=== PATIENT | female | born 1980 | race Caucasian/White ===

== ENCOUNTER 2018-07-19 00:01 | Observation (INO) ==
[2018-07-19] MEDS ORDERED: Isovue-370 500 ML BOTTLE IVP ONE (00:13)
--- NOTE | 2018-07-19 00:13 | Emergency Department Note ---
Disposition Clinical Impression: Facial droop, Facial tingling Disposition: Admitted As Inpatient Condition: Good Time of Disposition: 02:08 Neuro HPI - General Chief Complaint: ED Neuro Symptoms/Deficit Stated Complaint: Neuro symptoms Time Seen by Provider: 07/19/18 00:07 Source: patient Mode of arrival: ambulatory Limitations: no limitations Nursing Notes Reviewed: Yes Vital Signs Reviewed: Yes - History of Present Illness HPI Narrative: Patient is a 37-year-old female, history of right-sided stroke with residual right sided facial droop of the upper and lower face. Presents today due to concern for left-sided facial droop. Patient states that around 10:30 PM on 07/18/2018, she states that she was "feeling off/foggy" and felt like she was slurring her speech, felt as though the left face was drooping in the lip and eyebrow. She also noted decreased sensation of the left upper and lower face. Denies any other numbness, tingling, weakness anywhere else. She denies any ot her symptoms of chest pain, shortness breath, nausea, vomiting, fevers, diarrhea, abdominal pain, any changes in vision. Denies any recent URI symptoms. - Related Data Home Medications: Previous Rx's Medication Instructions Recorded Cyclobenzaprine [Flexeril] 10 mg PO TID PRN #30 tablet 10/16/15 Ibuprofen [Motrin] 600 mg PO TID PRN #30 tab 10/16/15 Ondansetron ODT [Zofran ODT] 4 mg SL Q8HR PRN #10 tab.rapdis 10/16/15 Cyclobenzaprine [Flexeril] 10 mg PO TID #15 tablet 11/17/16 HYDROcodone/Acet 5/325 mg [[place] 1 tab PO Q4H PRN #12 tab 11/17/16 5-325 mg] RX: Naproxen [Naprosyn] 500 mg PO BID #20 tablet 10/12/17 Allergies/Adverse Reactions: Allergies Allergy/AdvReac Type Severity Reaction Status Date / Time No Known Allergies Allergy Verified 06/25/18 22:48 All systems ED: reviewed and negative except as stated. Constitutional: Denies: fever Cardiovascular: Denies: chest pain Respiratory: Denies: dyspnea Gastrointestinal: Denies: abdominal pain, nausea, vomiting, diarrhea Genitourinary: Denies: urgency, dysuria Neurological: Reports: weakness, numbness. Denies: headache, paresthesias, confusion Past Medical History - Past Medical History Attestation: Yes The following information was validated with the patient. Source: patient Medical history: Reports: cancer Psychiatric history: Reports: no psych history [employer] history: Reports: no [employer] history - Social History Smoking Status: Current every day smoker Smokeless Tobacco Status: No Alcohol use: Reports: none Drug use: Reports: none Physical Exam - General Limitations: no limitations General appearance: alert, in no apparent distress - Head Head exam: atraumatic, normocephalic, normal inspection - Eye Eye exam: Present: normal appearance, PERRL, EOMI - ENT ENT exam: normal oropharynx, mucous membranes moist, other (mild droop of left nasolabial fold) - Neck Neck exam: Present: normal inspection, full ROM, trachea midline - Chest Chest inspection: Present: normal inspection, symmetric chest wall rise - Respiratory Respiratory exam: Present: normal lung sounds bilaterally - Cardiovascular Cardiovascular exam: Present: normal rhythm, tachycardia, normal heart sounds - Abdominal Exam Abdominal exam: Present: soft, Non-Tender. Absent: tenderness, distention, guarding, rebound, rigidity - Extremities Exam Extremities exam: Present: normal inspection, full ROM. Absent: tenderness, pedal edema - Neurological Exam Neurological exam: Present: alert, oriented X3, other (chronic right eyebrow and right nasolabial droop from previous stroke) - Expanded Neurological Exam Patient oriented to: Present: person, place, time Speech: Present: fluid speech Cranial nerves: EOM function (II, III, IV, ): Normal, facial sensation (V): Normal, facial palsy (VII): Abnormal Right, Abnormal Left (chronic right eyebrow and right nasolabial droop from previous stroke; mild left sided nasolabial droop), spinal accessory function (XI): Normal, tongue deviation (XII): Normal Motor strength - LUE: 5/5 Motor strength - RUE: 5/5 Motor strength - LLE: 5/5 Motor strength - RLE: 5/5 Sensory exam upper extremity: light touch: Abnormal Left (mild decrease in sensaiton of LUE) Sensory exam lower extremity: light touch: Normal Coma Scale Eye Opening: Spontaneous Coma Scale Motor Response: Obeys Commands Coma Scale Verbal Response: Oriented Coma Scale Total: 15 - Psychiatric Psychiatric exam: Present: normal affect, normal mood - Skin Skin exam: Present: warm, dry, intact, normal color Course Course Narrative: Patient had mild left nasolabial drooping, she was able to raise her left eyebrow. She does have chronic droop of her right upper and lower face from what she says was a previous stroke. No drift of her extremities. She did have subjective decreased sensation to light touch on the left upper extremity. However, facial sensation was equal bilaterally. Due to mild left nasolabial drooping and decreased sensation of the left upper extremity, she received an NIH of 2. Sroke alert called on eval. basic blood work ordered, EKG, chest x- ray ordered as well. CT of the head noncontrast along with CT of the head and neck was performed. 00:55 Still do not have head CT back at this time. CT was called and "are working on it" per ED crank hand. Patient has went for CT but no images up for evaluation. 01:05 Still don't have head CT read back. Personally reviewed the images of the noncontrast head CT. No acute findings, a repeat. We will go ahead and talk with [facility] neurologist and wait for official read. 01:11 [facility] called back. Talked with call center, they are calling [facility] stroke specialist, awaiting call back. 01:[address] negative. Stroke neurologist on bedside cam. Patient has been seen and evaluated by [facility] neurologist Dr. Diop. On his evaluation, patient only had subjective tingling of the left side of the face. No other acute findings. He offered TPA due to the patient and the patient declined. He did note that this may not be a stroke and he would usually not recommend TPA for patients with a low NIH score. She understood the risk and benefits that was discussed with her mother [facility] neurologist and she has declined TPA at this time. He recommended that we admit the patient for further stroke workup. Patient is agreeable with this plan. Recommend MRI for next step. Rest of the workup was negative. 02:[address] Kuo Head CT 07/19/18 00:13 IMPRESSION: 1. No acute intracranial abnormality. 2. Negative for hemodynamic stenosis or occlusion identified involving intracranial arterial vasculature.. Critical results were called by Dr. Jay Gutierrez to Dr Morin on 07/19/2018 at 01:12. D/ / Jay Gutierrez / Jay Gutierrez Interpreting Provider: Jay Gutierrez Head CTA 07/19/18 00:13 IMPRESSION: 1. No acute intracranial abnormality. 2. Negative for hemodynamic stenosis or occlusion identified involving intracranial arterial vasculature.. Critical results were called by Dr. Jay Gutierrez to Dr Morin on 07/19/2018 at 01:12. D/ / Jay Gutierrez / Jay Gutierrez Interpreting Provider: Jay Gutierrez Chest X-Ray 07/19/18 00:15 IMPRESSION: Prominence of the central pulmonary vasculature is suspected. Correlation for pulmonary vascular congestion is recommended. D/ / Elayne Kennedy Cha, MD / Elayne Kennedy Cha, MD Interpreting Provider: Elayne Kennedy Cha, MD Vital Signs Temperature 0 F L 07/19/18 00:12 Pulse Rate 111 07/19/18 00:12 Respiratory Rate 19 07/19/18 00:12 Blood Pressure 160/98 07/19/18 00:12 O2 Sat by Pulse Oximetry 98 07/19/18 00:12 Temperature 0 F L 07/19/18 00:12 Pulse Rate 99 07/19/18 01:28 Respiratory Rate 16 07/19/18 01:28 Blood Pressure 142/96 07/19/18 01:28 O2 Sat by Pulse Oximetry 98 07/19/18 01:00 Oxygen Delivery Oxygen Delivery Room Air Neuro Symptoms/Deficit - MDM Narrative Medical decision making narrative: Patient had mild left nasolabial drooping, she was able to raise her left eyebrow. She does have chronic droop of her right upper and lower face from what she says was a previous stroke. No drift of her extremities. She did have subjective decreased sensation to light touch on the left upper extremity. However, facial sensation was equal bilaterally. Due to mild left nasolabial drooping and decreased sensation of the left upper extremity, she received an NIH of 2. Sroke alert called on eval. basic blood work ordered, EKG, chest x- ray ordered as well. CT of the head noncontrast along with CT of the head and neck was performed. 00:55 Still do not have head CT back at this time. CT was called and "are working on it" per ED crank hand. Patient has went for CT but no images up for evaluation. 01:05 Still don't have head CT read back. Personally reviewed the images of the noncontrast head CT. No acute findings, a repeat. We will go ahead and talk with [facility] neurologist and wait for official read. 01:11 [facility] called back. Talked with call center, they are calling [facility] stroke specialist, awaiting call back. 01:[address] negative. Stroke neurologist on bedside cam. Patient has been seen and evaluated by [facility] neurologist Dr. Diop. On his evaluation, patient only had subjective tingling of the left side of the face. No other acute findings. He offered TPA due to the patient and the patient declined. He did note that this may not be a stroke and he would usually not recommend TPA for patients with a low NIH score. She understood the risk and benefits that was discussed with her mother [facility] neurologist and she has declined TPA at this time. He recommended that we admit the patient for further stroke workup. Patient is agreeable with this plan. Recommend MRI for next step. Rest of the workup was negative. 02:[address] Kuo - Medical Records Medical records reviewed: Yes I reviewed the patient's medical records. - Lab Data Lab results reviewed: Yes I reviewed the patient's lab results. Result diagrams: 07/19/18 00:15 07/19/18 00:15 Lab Results 07/19/18 07/19/18 07/19/18 Range/Units 00:15 00:15 00:15 WBC 10.0 (4.3-11.1) K/mcL RBC 4.49 (3.82-4.97) M/mcL Hgb 13.8 (11.5-15.4) g/dL Hct 40.7 (35.3-44.9) % MCV 90.6 (83.0-100.0) fL MCH 30.7 (28.0-33.3) pg MCHC 33.9 (31.6-35.5) g/dL RDW 12.8 (11.5-14.5) % Plt Count 290 (140-400) K/mcL MPV 9.5 (9.4-12.4) fL PT 11.8 (9.4-12.1) Seconds INR 1.0 APTT 41.1 H (26.0-36.0) Seconds Sodium 136 (136-145) mEq/L Potassium 3.8 (3.5-5.1) mEq/L Chloride 106 (98-107) mEq/L Carbon Dioxide 23 (23-29) mEq/L BUN 11 (6-20) mg/dL Creatinine 0.66 (0.60-1.20) mg/dL Est GFR ( Amer) > 60 (> 60) Est GFR (Non-Af Amer) > 60 (> 60) BUN/Creatinine Ratio 17 (6-26) Glucose 141 H (70-105) mg/dL Calculated Osmolality 284 (280-300) Calcium 8.9 (8.6-10.3) mg/dL Troponin I < 0.03 (< 0.04) ng/mL - Radiology Data Radiology results reviewed: Yes I reviewed the patient's radiology results. - EKG Data EKG attestation: Yes I reviewed and interpreted this EKG. EKG results narrative: 07/19/2018 at 00:47. Sinus tachycardia. Rate 104. PA 162. QRS 100. QTC 470. Normal axis. No acute ST elevation or depression. NIH Stroke Scale - Level of Consciousness LOC: Alert - LOC Questions LOC Questions: Answers both correctly - LOC Commands LOC Commands: Performs both correctly - Best Gaze Best Gaze: Normal - Visual Visual: No visual loss - Facial Palsy Facial Palsy: Minor asymmetry on smiling, flattened nasolabial fold (occasional left nasolabial fold droop on exam) - Motor Arms Motor Arm-Left: No drift for 10 seconds Motor Arm-Right: No drift for 10 seconds - Motor Legs Motor Leg-Left: No drift for 5 seconds Motor Leg-Right: No drift for 5 seconds - Limb Ataxia Limb Ataxia: Absent of affected limb too weak to perform exam - Sensory Sensory: Mild to moderate loss, "not as sharp" (mild decrease in LUE to light touch; normal bilateral face and LE) - Best Language Best Language: No aphasia - Dysarthria Dysarthria: Normal - Extinction and Inattention Extinction and Inattention: Normal - NIHSS Total Score NIHSS Total Score: 2 TPA Checklist - LKW: 3-4.5 hrs Add. Warnings/Precautions Patient/family understanding: The patient/family members have been counseled and understood the risk, benefit, and alternatives of treatment. Critical Care Time Critical Care Time: Yes Total Critical Care Time: 35 Attestation: Acute focal neurological deficit S.B.A.R. - S.B.A.R. Situation: Demographics, MOA Background: Presenting Complaint, Relevant PMH, Meds, & Allergies Assessment: Vital Signs, Course and respsone to treatment, Exam Concerns, Patient/Family Expectation, Pertinant Lab Results Recommendation: Barrier(s) to disposition, Recommendation based on pending studies, treatments, or consults S.B.A.R. Report Given to: Dr. Kuo Attestation Statement - Attestation Attestation: Dr. Morin note: Patient seen in conjunction with resident Dr. Corey Laws; please see his charting for complete documentation. I spent [id number] time with the patient and agree with the patient's treatment and disposition. Vague report of witnessed complaints approximately 2 hours ago. Patient has a myriad of neurol ogical symptoms. She speaks clearly but states that she was not speaking clearly just a half an hour ago. He reports left facial droop but no left facial droop was reported. At baseline she has what appears to be chronic right-sided Skinner's palsy. No headache. No extremity weakness on examination either in the hands or the legs. She ambulates without difficulty and takes her clothes on and off without difficulty. Vague complaints about feeling like she is in a tunnel. At times she is able to raise her eyebrows and then she states that she cannot and does not try to raise her eyebrows. Emergent imaging is unremarkable. Stroke alert was called. Images are unremarkable. No focal neur ological deficits upon admission at Hospital. Lab work is also unremarkable as is the EKG.
[2018-07-19 00:29] LABS: Hematocrit 40.7 % (35.3-44.9); Hemoglobin 13.8 g/dL (11.5-15.4); Mean Corpuscular HGB Conc 33.9 g/dL (31.6-35.5); Mean Corpuscular Hemoglobin 30.7 pg (28.0-33.3); Mean Corpuscular Volume 90.6 fL (83.0-100.0); Mean Platelet Volume 9.5 fL (9.4-12.4); Platelet Count 290 K/mcL (140-400); Red Blood Count 4.49 M/mcL (3.82-4.97); Red Cell Distribution Width 12.8 % (11.5-14.5)
[2018-07-19 00:39] LABS: Prothrombin Time 11.8 Seconds (9.4-12.1)
[2018-07-19 00:42] LABS: Activated Partial Thrombo Time 41.1 Seconds (26.0-36.0)
[2018-07-19 00:52] LABS: BUN/Creatinine Ratio 17 (6-26); Blood Urea Nitrogen 11 mg/dL (6-20); Calcium 8.9 mg/dL (8.6-10.3); Carbon Dioxide 23 mEq/L (23-29); Chloride 106 mEq/L (98-107); Glucose 141 mg/dL (70-105); Osmolality,Calculated 284 (280-300); Potassium 3.8 mEq/L (3.5-5.1); Sodium 136 mEq/L (136-145); Troponin I < 0.03 ng/mL (< 0.04); eGFR For Non-African Americans > 60 (> 60)
[2018-07-19] MEDS ORDERED: Melatonin 3 MG TABLET PO ONE (03:01)
[2018-07-19] MEDS ORDERED: Ondansetron ODT 4 MG TAB.RAPDIS SL PRN (09:45)
[2018-07-19] MEDS ORDERED: Mag Hydrox/Al Hydrox/Simeth 30 ML UDC PO PRN (09:45)
[2018-07-19] MEDS ORDERED: Acetaminophen 325 MG TABLET PO PRN (09:45)
[2018-07-19] MEDS ORDERED: Naloxone 0.4 MG/ML INJ IVP PRN ×2 (09:45)
[2018-07-19 11:20] LABS: INR 0.9; Prothrombin Time 10.2 Seconds (9.4-12.1)
[2018-07-19 11:22] LABS: Activated Partial Thrombo Time 35.6 Seconds (26.0-36.0)
[2018-07-19 11:25] VITALS: BP 150/103
[2018-07-19 11:25] LABS: Chol/HDL Ratio 9.1 (0-4.9); Cholesterol 264 mg/dL (< 200); HDL Cholesterol 29 mg/dL (40-59); Triglycerides 617 mg/dL (< 150)
--- NOTE | 2018-07-19 11:31 | Internal Med History&Physical ---
Date of Encounter: 07/25/18 Time of Encounter: 10:00 Internal Medicine - H&P: HPI Chief complaint: Facial droop History of present illness: Ms. 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 Presented with left facial droop associated with slurred speech, and B/L leg weakness. [facility] team evaluated the patient and TPA was offered but the patient declined. All of her symptoms resolved later. CT head and CTA head/neck were unremarkable. The patient was upset that she was left in the ER room from 1.30 am untill 5.30 Am and she found later that the room was available. She stated that she could not get any sleep down there. Also she stated that she was complaining of migraine and her issues was not addressed because the staff was not able to identify her doctor and she wanted to leave AMA, service recovery was completed by both me and the staff on the floor (appreciate kirby help). The neurology team agreed kindly to see her stat to evaluate her. Past Med Surg Social Fam HX - Past Medical History Medical history: cancer, CVA, migraine Additional medical history: R LUNG CA Psychiatric history: anxiety - Past Surgical History Surgical History: cholecystectomy, hysterectomy Additional surgical history: TONISILECTOMY - Social History Smoking Status: Current every day smoker Packs per day: 1 Smokeless Tobacco Status: No Alcohol use: none Drug use: none - Family History Mother History Unknown: Yes Internal Medicine - H&P: Meds Cyclobenzaprine [Flexeril] 10 mg PO TID PRN #30 tablet 10/16/15 [Rx] Ibuprofen [Motrin] 600 mg PO TID PRN #30 tab 10/16/15 [Rx] Ondansetron ODT [Zofran ODT] 4 mg SL Q8HR PRN #10 tab.rapdis 10/16/15 [Rx] Cyclobenzaprine [Flexeril] 10 mg PO TID #15 tablet 11/17/16 [Rx] HYDROcodone/Acet 5/325 mg [[place] 5-325 mg] 1 tab PO Q4H PRN #12 tab 11/17/16 [Rx] Naproxen [Naprosyn] 500 mg PO BID #20 tablet 10/12/17 [Rx] Allergy/AdvReac Type Severity Reaction Status Date / Time No Known Allergies Allergy Verified 06/25/18 22:48 All Systems PM: A 10-system review of systems was performed and is negative for pertinent findings except as documented above in the HPI. - Constitutional Constitutional: no chills, no fever(s), no night sweats - EENT Eyes: no change in vision, no discharge, no pain, no photophobia Ears: no ear discharge, no ear pain, no tinnitus Nose, mouth and throat: no dysphagia, no nasal discharge, no neck pain, no sore throat - Cardiovascular Cardiovascular ROS IM: no chest pain, no diaphoresis, no dyspnea, no lightheadedness, no palpitations, no syncope - Respiratory Respiratory: no cough, no dyspnea, no wheezing, no excessive phlegm production - Gastrointestinal Gastrointestinal: no abdominal pain, no diarrhea, no hematemesis, no hematochezia, no melena, no nausea, no vomiting - Genitourinary Genitourinary: no change in urinary stream, no dysuria, no flank pain, no hematuria - Musculoskeletal Musculoskeletal ROS IM: no numbness, no tingling - Integumentary Integumentary IM: no rash, no unusual bruising - Neurological Neurological ROS: no confusion, no convulsions, no focal weakness, no numbness, no tingling, no tremor(s) - Hematologic/Lymphatic Hematologic/Lymphatic: no easy bruising - Constitutional Vitals: Temp Pulse Resp BP Pulse Ox 98.0 F 87 20 150/103 95 07/19/18 09:50 07/19/18 11:23 07/19/18 11:23 07/19/18 11:23 07/19/18 11:23 General appearance: Present: A&O X 3, no acute distress Exam: As below - Head Head exam: Present: atraumatic, normocephalic - Eye Eye exam: Present: PERRL, conjuntiva pink, sclera anicteric Pupils: Present: PERRL - Neck Neck exam general surgery: Present: supple, trachea midline. Absent: lymphadenopathy - Respiratory Respiratory exam: Present: CTAB. Absent: accessory muscle use, rales, rhonchi, wheezes - Cardiovascular Cardiovascular exam: Present: RRR, +S1, +S2. Absent: diastolic murmur, gallop, rubs, systolic murmur - GI/Abdominal GI/Abdominal exam: Present: normal bowel sounds, soft, no peritoneal signs. Absent: distended, tenderness - Extremities Exam Extremities exam: Present: warm, radial pulses palpable and symmetrical. Absent: calf tenderness, cyanotic, pedal edema - Neurological Exam Neurological exam: Present: CN II-XII intact, oriented X3, no focal deficits. Absent: pronater drift, facial droop, speech deficit - Skin Skin exam: Present: dry, intact Internal Med - H&P Results - Labs CBC & Chem 7: 07/19/18 00:15 07/19/18 00:15 Labs: Short CBC 07/19/18 Range/Units 00:15 WBC 10.0 (4.3-11.1) K/mcL Hgb 13.8 (11.5-15.4) g/dL Hct 40.7 (35.3-44.9) % Plt Count 290 (140-400) K/mcL BMP 07/19/18 00:15 Sodium 136 Potassium 3.8 Chloride 106 Carbon Dioxide 23 BUN 11 Creatinine 0.66 Glucose 141 H Calcium 8.9 Cardiac Enzymes 07/19/18 Range/Units 00:15 Troponin I < 0.03 (< 0.04) ng/mL - Impressions ITS Impressions Head CT 07/19/18 00:13 IMPRESSION: 1. No acute intracranial abnormality. 2. Negative for hemodynamic stenosis or occlusion identified involving intracranial arterial vasculature.. Critical results were called by Dr. Jay Gutierrez to Dr Morin on 07/19/2018 at 01:12. D/ / Jay Gutierrez / Jay Gutierrez Interpreting Provider: Jay Gutierrez Head CTA 07/19/18 00:13 IMPRESSION: 1. No acute intracranial abnormality. 2. Negative for hemodynamic stenosis or occlusion identified involving intracranial arterial vasculature.. Critical results were called by Dr. Jay Gutierrez to Dr Morin on 07/19/2018 at 01:12. D/ / Jay Gutierrez / Jay Gutierrez Interpreting Provider: Jay Gutierrez Neck CTA 07/19/18 00:13 IMPRESSION: The cervical arterial vasculature is patent. D/ / Robin Galeana MD / Robin Galeana MD Interpreting Provider: Robin Galeana MD Chest X-Ray 07/19/18 00:15 IMPRESSION: Prominence of the central pulmonary vasculature is suspected. Correlation for pulmonary vascular congestion is recommended. D/ / Elayne Kennedy Cha, MD / Elayne Kennedy Cha, MD Interpreting Provider: Elayne Kennedy Cha, MD - Assessment and Plan (1) TIA (transient ischemic attack) Status: Acute Assessment and plan: The patient Presented with left facial droop associated with slurred speech, and B/L leg weakness. [facility] team evaluated the patient and TPA was offered but the patient declined. All of her symptoms resolved later. CT head and CTA head/neck were unremarkable. The neurology team was consulted for further evaluation. (2) Hypertension Status: Acute Assessment and plan: The patient insisted that she do not have HTN and stated her blood pressure is high because she is upset. Qualifiers: Qualified Code(s): I10 - Essential (primary) hypertension (3) DVT prophylaxis Status: Acute Assessment and plan: The patient is ambulatory, she wanted to be D/C after neuro evaluation. - Time Spent With Patient Total time spent is greater than 50% in coordination of care (as documented) at patient's floor/unit and/or counseling patient:
--- NOTE | 2018-07-19 12:05 | Neurology - Consult Note ---
Addendum entered and electronically signed by Gertrude Golden MD 07/19/18 13:11: I did a [id number] examination with the patient in the presence of physician post production assistant Florentino Bhatia and I agree with his history taking, physical examination, assessment and plan outlined below. 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 Patient does have a history of hypertension but has not been compliant with anti-hypertensive therapy. Currently, the patient has baseline neurological examination with right hemifacial spasm. Concerns for a regulated hypertension that can cause transient focal neurological symptoms. -Patient has also sleeping difficulty and excessive daytime sleepiness likely has untreated obstructive sleep apnea which can be addressed as an outpatient. -Patient needs to follow with the family physician for proper treatment of hypertension and patient is advised to compliant with anti-hypertensive therapy -pt does have rather frequent migraines that may also be complicated by un- regulated blood pressure. -Agree with starting patient on aspirin 81 mg daily for treatment of possible TIA and resins of multiple risk factors for stroke -Patient is advised to follow-up in neurology clinic In 7-10 days and at that time, an outpatient polysomnography will be ordered. Patient also agree to get outpatient MRI of the brain without contrast. Original Note: Date of Encounter: 07/19/18 Time of Encounter: 12:00 Assessment and Plan (1) TIA (transient ischemic attack) Current Visit: Yes Status: Acute left facial droop and orofacial parasthesias s/sx resolved lasting less than 24 hours HTN on admission; s/sx result of HTN/TIA risk factors include obesity, smoking history, diabetes, migraine and hypertension Will need daily ASA 81mg on DC, need rx for home anti-HTN meds (she is non compliant with anti-HTN meds) discussed modifying risk factors including blood glucose control, strict control of blood pressure, weight loss and lifestyle changes She will need to follow-up with Dr. Golden in the 7-10 days of discharge. At neurology follow-up we will schedule outpatient MRI. It should be noted that she was offered inpatient workup however she declined. Neuro exam is nonfocal and nonlateralizing for any new deficits. She does have chronic right facial deficits S/P Skinner's palsy 7 years ago History of Present Illness Chief complaint: tia vs cva HPI: Ms. 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 Presented overnight with concerns for TIA vs CVA. She was at work yesterday night when she began to develop slurred speech, left facial droop, disequalibrium and B/L leg weakness with left leg weakness worse that the right. While in the ED tele stoke at [facility] was contacted and TPA was offered but the patient declined. At the time of my assessment her s/sx have resolved and she is back to baseline. She was offered inpatient w/u but declined. CT head and CTA head/neck were unremarkable. Lab including CBC and BMP unremarkable. She was hypertensive on admission and this persist now but again she is non complaint with anti-HTN meds. Past Med Surg Social Fam HX - Past Medical History Medical history: cancer, CVA, migraine Additional medical history: R LUNG CA Psychiatric history: anxiety - Past Surgical History Surgical History: cholecystectomy, hysterectomy Additional surgical history: TONISILECTOMY - Social History Smoking Status: Current every day smoker Packs per day: 1 Smokeless Tobacco Status: No Alcohol use: none Drug use: none - Family History Mother History Unknown: Yes Medications and Allergies Cyclobenzaprine [Flexeril] 10 mg PO TID PRN #30 tablet 10/16/15 [Rx] Ibuprofen [Motrin] 600 mg PO TID PRN #30 tab 10/16/15 [Rx] Ondansetron ODT [Zofran ODT] 4 mg SL Q8HR PRN #10 tab.rapdis 10/16/15 [Rx] Cyclobenzaprine [Flexeril] 10 mg PO TID #15 tablet 11/17/16 [Rx] HYDROcodone/Acet 5/325 mg [[place] 5-325 mg] 1 tab PO Q4H PRN #12 tab 11/17/16 [Rx] Naproxen [Naprosyn] 500 mg PO BID #20 tablet 10/12/17 [Rx] Allergy/AdvReac Type Severity Reaction Status Date / Time No Known Allergies Allergy Verified 06/25/18 22:48 All Systems: The remainder of the systems were reviewed and are negative - Constitutional Constitutional ROS IM: snoring, other (admits to apneic like episodes with episodes of gasping for breath at HS), no chills, no fatigue, no fever(s) - Nose, Mouth, Throat Nose, mouth and throat: disequilibrium, headache(s), no abnormal hearing, no dizziness, no facial pain, no lip swelling, no mouth lesions, no mouth pain, no nasal congestion, no neck pain, no tongue swelling - Cardiovascular Cardiovascular ROS IM: no chest pain, no diaphoresis, no irregular heart rhythm, no leg edema, no lightheadedness, no rapid heart rate, no syncope - Gastrointestinal Gastrointestinal: no abdominal pain, no diarrhea, no nausea, no vomiting - Genitourinary Genitourinary ROS: no dysuria, no flank pain - Musculoskeletal Musculoskeletal ROS IM: muscle weakness (b/l legs; has resolved), no arthralgias, no myalgias, no numbness - Neurological Neurological ROS: disequilibrium, focal weakness (b/l legs; left greater than right; has resolved and she is back to baseline), headache(s), numbness (left fact), paresthesias (left facce), no abnormal gait, no abnormal hearing, no abnormal speech, no behavioral changes, no burning sensations, no tremor(s), no other visual disturbances Physical Examination - Vital Signs Vital Signs: Initial Vital Signs Temp Pulse Resp BP Pulse Ox 0 F L 111 19 160/98 98 07/19/18 00:12 07/19/18 00:12 07/19/18 00:12 07/19/18 00:12 07/19/18 00:12 - Exam Exam: Examination: General Examination: *CONSTITUTIONAL: Alert and oriented x3, no acute distress, *GENERAL APPEARANCE OF PATIENT appears healthy and well groomed *EYES: pupils equal, round, reactive to light and accommodation, conjunctiva clear *CARDIOVASCULAR RRR, S1, S2, no mumurs, rubs, or gallops, no peripheral edema, distal temperature normal, dorsalis pedis pulses normal. Musculoskeletal: *GAIT AND STATION normal, with normal Romberg testing, no abnormalities such as broad base gait or spasticity *ASSESSMENT OF MUSCLE STRENGTH IN THE UPPER AND LOWER EXTREMITIES bilateral deltoid, bicep, tricep, first aid nurse strength, hip flexors ,anterior tibialis, dorsoflexion of the foot 5/5 *MUSCLE TONE IN THE UPPER AND LOWER EXTREMITIES normal. No abnormal movements, fasciculations or atrophy identified. Neurological: *ORIENTATION to person, situation, time and place *RECURRENT AND REMOTE MEMORY intact *ATTENTION AND CONCENTRATION are normal *LANGUAGE FUNCTION no significant aphasia or dysarthia was noted. *FUND OF KNOWLEDGE aware of current events, past history, vocabulary *MENTAL attention span and concentration normal. *CN II optic fundi were normal, no papilledema noted. *CN III,IV, PERRLA extraocular eye movements were full, no nystagmus and no ptosis noted. *CN V shows normal sensation and jaw opens symmetrically. *CN VII shows normal facial movement symmetrically, upper and lower bilaterally. *CN VIII shows no significant hearing loss on exam *CN IX,,X palate elevated symmetrically *CN XI normal strength in the sternocleidomastoid muscles, symmetrical shoulder shrugging. *CN XII tongue protruded in the midline, with normal strength and movement. *SENSORY EXAMINATION light touch intact *REFLEXES: deep tendon reflexes were normal and symmetrical , grade 2/4 diffusely, no pathological reflexes were noted. *CEREBELLAR TESTING normal finger to nose, heel/knee/christine *PAIN LEVEL 0 - Constitutional General appearance: comfortable - Neurologic Sensorimotor examination: intact Detailed motor examination: grossly full strength in all extremities, full strength in all major muscle groups Motor examination - right side: 5/5: deltoids, biceps, triceps, wrist flexion, wrist extension, first aid nurse, hip flexors, tibialis Anterior, quadriceps, toe extension (EHL), plantarflexion Motor examination - left side: 5/5: deltoids, biceps, triceps, wrist flexion, wrist extension, hip flexors, first aid nurse, quadriceps, tibialis Anterior, toe extension (EHL), plantarflexion Detailed sensory examination: intact, light touch Reflex and gait examination: intact Reflexes: Biceps: 2+, Triceps: 2+, Brachioradialis: 2+, Patella: 3+, Achilles: 3+ Mental Status Examination: awake, alert, oriented to person, oriented to place, oriented to time, follows commands appropriately, answers questions appropriately, no aphasia, makes eye contact, follows simple commands Cranial nerve examination: PERRL, EOMI Results - Laboratory Findings CBC and BMP: 07/19/18 00:15 07/19/18 00:15 Abnormal lab findings: Abnormal lab results Glucose 141 mg/dL (70-105) H 07/19/18 00:15 Triglycerides 617 mg/dL (< 150) H 07/19/18 10:45 Cholesterol 264 mg/dL (< 200) H 07/19/18 10:45 HDL Cholesterol 29 mg/dL (40-59) L 07/19/18 10:45 Cholesterol/HDL Ratio 9.1 (0-4.9) H 07/19/18 10:45 - Diagnostic Findings Additional findings: CT/CT stroke alert head wo con IMPRESSION: 1. No acute intracranial abnormality. 2. Negative for hemodynamic stenosis or occlusion identified involving intracranial arterial vasculature.. Consult Discharge Plan - Plan Referrals: NONE,PCP [Primary Care Provider] -
--- NOTE | 2018-07-19 17:52 | Electrocardiograph Report ---
[address] [place], [place] [address] Test Date: 2018-07-19 Pat Name: Emy Chan Department: [id number] Room: [facility] Gender: F Comb Fixer: : 1980 Requested By: Corey Laws Order Number: [id number] Reading MD: Lety Canela Measurements Intervals [place] Rate: 104 P: 81 WA: 162 QRS: 105 QRSD: 100 T: 27 QT: 357 QTc: 470 Interpretive Statements Sinus tachycardia Borderline right axis deviation Electronically Signed On 07-19-2018 17:50:18 EDT by Lety Canela
--- NOTE | 2018-07-20 11:55 | Discharge Summary ---
- NOTES TO OUTPATIENT PROVIDER Notes to Outpatient Provider: Neurology F/U as per Neurology recs Orders not resulted at time of discharge: Pending orders 07/19/18 09:45 Urinalysis reflex Microscopic [URIN] Routine Date of Encounter: 07/25/18 Time of Encounter: 01:00 - Discharge Diagnosis (1) TIA (transient ischemic attack) Priority: Primary Status: Acute (2) Hypertension Priority: Secondary Status: Acute Assessment and Plan: The patient insisted that she do not have HTN and stated her blood pressure is high because she is upset. She take only lisinopril PRN, Hospital course: Ms. 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 Presented with left facial droop associated with slurred speech, and B/L leg weakness. [facility] Tel team evaluated the patient and TPA was offered but the patient declined. All of her symptoms resolved later. CT head and CTA head/neck were unremarkable. The patient was upset that she was left in the ER room from 1.30 am untill 5.30 Am and she found later that the room was available. She stated that she could not get any sleep down there. Also she stated that she was complaining of migraine and her issues was not addressed because the staff was not able to identify her doctor and she wanted to leave AMA, service recovery was completed by both me and the staff on the floor (appreciate dorothyer help). The neurology team agreed kindly to see her stat to evaluate her and they recommend to D/C home with neurology clinic F/U. They will decide on MRI when she get evaluated by them as outpatient. - Time Spent with Patient Total time spent providing and/or coordinating discharge services: - Discharge Medications Prescriptions: No Action Cyclobenzaprine [Flexeril] 10 mg PO TID PRN #30 tablet PRN Reason: Pain Ibuprofen [Motrin] 600 mg PO TID PRN #30 tab PRN Reason: Pain Ondansetron ODT [Zofran ODT] 4 mg SL Q8HR PRN #10 tab.rapdis PRN Reason: Nausea And Vomiting Cyclobenzaprine [Flexeril] 10 mg PO TID #15 tablet HYDROcodone/Acet 5/325 mg [[place] 5-325 mg] 1 tab PO Q4H PRN #12 tab PRN Reason: Pain Naproxen [Naprosyn] 500 mg PO BID #20 tablet Home Medications: Cyclobenzaprine [Flexeril] 10 mg PO TID PRN #30 tablet 10/16/15 [Rx] Ibuprofen [Motrin] 600 mg PO TID PRN #30 tab 10/16/15 [Rx] Ondansetron ODT [Zofran ODT] 4 mg SL Q8HR PRN #10 tab.rapdis 10/16/15 [Rx] Cyclobenzaprine [Flexeril] 10 mg PO TID #15 tablet 11/17/16 [Rx] HYDROcodone/Acet 5/325 mg [[place] 5-325 mg] 1 tab PO Q4H PRN #12 tab 11/17/16 [Rx] Naproxen [Naprosyn] 500 mg PO BID #20 tablet 10/12/17 [Rx] Allergies/Adverse Reactions: Allergy/AdvReac Type Severity Reaction Status Date / Time No Known Allergies Allergy Verified 06/25/18 22:48 Date of admission: 07/19/18 03:36 Primary care physician: PCP NONE Consults: 07/19/18 09:55 Consult to Physician [CONS] Routine Consulting Provider: Bo Williamson I Reason for Consult: TIA Time Notified: 09:56 Call Completed: No 07/20/18 11:46 Consult to Neurology [CONS] Routine Consulting Provider: [facility] Reason for Consult: Hospital F/U Time Notified: 11:48 Call Completed: Yes - Constitutional Vitals: Temp Pulse Resp BP Pulse Ox 98.0 F 87 20 150/103 95 07/19/18 09:50 07/19/18 11:23 07/19/18 11:23 07/19/18 11:23 07/19/18 11:23 General appearance: Present: A&O X 3, no acute distress Exam: as below - Head Head exam: Present: atraumatic, normocephalic - Eye Eye exam: Present: PERRL, conjuntiva pink, sclera anicteric Pupils: Present: PERRL - Neck Neck exam general surgery: Present: supple, trachea midline. Absent: lymphadenopathy - Respiratory Respiratory exam: Present: CTAB. Absent: accessory muscle use, rales, rhonchi, wheezes - Cardiovascular Cardiovascular exam: Present: RRR, +S1, +S2. Absent: diastolic murmur, gallop, rubs, systolic murmur - GI/Abdominal GI/Abdominal exam: Present: normal bowel sounds, soft, no peritoneal signs. Absent: distended, tenderness - Extremities Exam Extremities exam: Present: warm, radial pulses palpable and symmetrical. Absent: calf tenderness, cyanotic, pedal edema - Neurological Exam Neurological exam: Present: oriented X3, no focal deficits. Absent: pronater drift, facial droop, speech deficit - Skin Skin exam: Present: dry, intact - Patient Status Disposition: Home, Self-Care Condition: Good Functional capacity at discharge: independent ambulation Overall status at discharge: patient is back to baseline - Discharge Instructions Follow Up With: Gertrude Golden MD [Partnered Physician] - (Submitted a web request for Dr. Golden's office to contact patient with an appointment) - Diet and Activity Activity: return to work once cleared by your PCP/specialist Diet: low fat, low cholesterol
== END 2018-07-19 13:30 | disposition home or self-care (01) ==
LOC: 2NENU 00:01 → EMEROOARM 00:01 → 2NENU 04:42
PROVIDERS: ADMIT Family Medicine; ATTEND Family Medicine